=== PATIENT | male | born 1970 | race Caucasian/White ===

== ENCOUNTER 2020-06-13 14:33 | Inpatient (IN) ==
[2020-06-13 15:27] LABS: Basophils # 0.1 10*3/uL (0.0-0.2); Basophils % 0.6 % (0.0-0.8); Eosinophils # 0.1 10*3/uL (0.0-0.87); Eosinophils % 1.2 % (0.00-10.9); Hematocrit 44.3 VOL% (42.0-52.0); Hemoglobin 14.9 GM/DL (14.0-18.0); Immature Granulocytes % 0.4 %; Immature Granulocytes Absolute 0.04 #; Lymphocytes # 2.9 10*3/uL (1.4-4.0); Lymphocytes % 26.5 % (21.2-54.2); Mean Corpuscular HGB Conc 33.6 GM/DL (32-36); Mean Corpuscular Volume 94.3 FL (87-102); Mean Platelet Volume 8.7 FL (9.6-12.0); Monocytes % 5.6 % (1.7-12.7); Neutrophils % 65.7 % (38.7-73.9); Platelet Count 299 T/CUMM (130-400); Red Cell Distribution Width 12.2 % (9.3-17.3); White Blood Count 10.9 T/CUMM (4-12)
[2020-06-13 15:54] LABS: Albumin 4.2 G/DL (3.4-5.0); Bilirubin,Total 1.4 MG/DL (0.2-1.0); Calcium 9.4 MG/DL (8.5-10.1); Potassium 3.8 MMOL/L (3.5-5.1); Total Protein 8.2 G/DL (6.4-8.2)
[2020-06-13] MEDS ORDERED: MORPHINE 4 MG/1 ML VIAL IV STA (17:03)
[2020-06-13] MEDS ORDERED: KETOROLAC 30 MG/1 ML VIAL IV STA (17:05)
[2020-06-13] MEDS ORDERED: ONDANSETRON 4 MG/2 ML VIAL IV PRN (17:32)
[2020-06-13] MEDS ORDERED: GLUCAGON 1 MG VIAL IM PRN (17:32)
[2020-06-13] MEDS ORDERED: ACETAMINOPHEN 325 MG TABLET PO PRN (17:32)
[2020-06-13] MEDS ORDERED: hydrALAZINE 20 MG/1 ML VIAL IV PRN (17:32)
[2020-06-13] MEDS ORDERED: DEXTROSE 50% 25 GM/50 ML VIAL IV PRN (17:32)
[2020-06-13] MEDS ORDERED: DOCUSATE SODIUM 100 MG CAPSULE PO PRN (17:32)
[2020-06-13 17:53] LABS: Barbiturates Screen,Urine Negative (Negative); Benzodiazepines Screen,Urine Negative (Negative); Cannabinoid Screen,Urine Negative (Negative); Opiate Screen,Urine Negative (Negative); Phencyclidine Screen,Urine Negative (Negative)
[2020-06-13] MEDS: ENOXAPARIN 40 MG/0.4 ML SYRINGE SUBCUT SCH (20:35)
[2020-06-13] MEDS: HYDROmorphone 2 MG/1 ML VIAL IV PRN (22:48)
[2020-06-14 03:59] LABS: Basophils # 0.1 10*3/uL (0.0-0.2); Basophils % 0.7 % (0.0-0.8); Eosinophils # 0.2 10*3/uL (0.0-0.87); Eosinophils % 2.1 % (0.00-10.9); Hematocrit 37.9 VOL% (42.0-52.0); Hemoglobin 12.7 GM/DL (14.0-18.0); Immature Granulocytes % 0.4 %; Immature Granulocytes Absolute 0.03 #; Lymphocytes # 2.9 10*3/uL (1.4-4.0); Lymphocytes % 36.1 % (21.2-54.2); Mean Corpuscular HGB Conc 33.5 GM/DL (32-36); Mean Corpuscular Volume 95.2 FL (87-102); Mean Platelet Volume 8.8 FL (9.6-12.0); Monocytes % 7.8 % (1.7-12.7); Neutrophils % 52.9 % (38.7-73.9); Platelet Count 280 T/CUMM (130-400); Red Blood Count 3.98 MC/CUMM (3.8-5.5); Red Cell Distribution Width 12.4 % (9.3-17.3)
[2020-06-14 04:24] LABS: Uric Acid 7.1 MG/DL (3.5-7.2)
[2020-06-14 04:30] LABS: Albumin 3.3 G/DL (3.4-5.0); Bilirubin,Total 0.4 MG/DL (0.2-1.0); Calcium 8.4 MG/DL (8.5-10.1); Osmolality,Calculated 277.7 MOS/KG (273-304); Potassium 3.7 MMOL/L (3.5-5.1); Risk Ratio 5.91; Thyroid Stimulating Hormone 2.65 uIU/ml (0.358-3.74); Total Protein 6.4 G/DL (6.4-8.2)
[2020-06-14] MEDS: HYDROmorphone 2 MG/1 ML VIAL IV PRN ×4 (05:08→18:40)
[2020-06-14] MEDS: PANTOPRAZOLE 40 MG TABLET PO SCH (08:39)
[2020-06-14 09:01] LABS: Bilirubin,Urine Negative (Negative); Blood, Urine Small mg/dL (Negative); Glucose,Urine (UA) Negative (Negative); Ketones,Urine Negative (Negative); Mucus,Urine Occasional /LPF (Occasional); Nitrite,Urine Negative (Negative); Protein,Urine Negative; RBC,Urine <1 /HPF (0-4); Urine Appearance CLEAR (Clear); Urine Color Yellow (Yellow); Urine Urobilinogen < 2.0 EU/DL (0.2-1.0)
[2020-06-14] MEDS: cefTRIAXone 1,000 MG in SODIUM CHLORIDE 0.9% 100 ML IV SCH (12:27)
[2020-06-14] MEDS: VANCOMYCIN INJ 1,500 MG in SODIUM CHLORIDE 0.9% 500 ML IV SCH ×2 (14:57→23:24)
[2020-06-14] MEDS: ENOXAPARIN 40 MG/0.4 ML SYRINGE SUBCUT SCH (21:02)
[2020-06-15] MEDS: HYDROmorphone 2 MG/1 ML VIAL IV PRN ×5 (04:03→22:14)
[2020-06-15] MEDS: PANTOPRAZOLE 40 MG TABLET PO SCH (10:25)
[2020-06-15] MEDS ORDERED: propofoL 200 MG/20 ML VIAL IV ONE (10:41)
[2020-06-15] MEDS ORDERED: fentaNYL 100 MCG/2 ML VIAL ONE (10:41)
[2020-06-15] MEDS ORDERED: SEVOFLURANE 1 UNIT/15 MINUTE INH ONE (10:41)
[2020-06-15] MEDS ORDERED: LIDOCAINE 2% 5 ML VIAL ONE (10:41)
[2020-06-15] MEDS ORDERED: MIDAZOLAM 2 MG/2 ML VIAL ONE (10:41)
[2020-06-15] MEDS ORDERED: ONDANSETRON 4 MG/2 ML VIAL ONE (11:15)
[2020-06-15] MEDS ORDERED: LACTATED RINGERS 1,000 ML IV ONE (11:15)
[2020-06-15] MEDS ORDERED: DEXAMETHASONE 4 MG/1 ML VIAL ONE (11:15)
[2020-06-15] MEDS ORDERED: KETOROLAC 30 MG/1 ML VIAL ONE (11:15)
[2020-06-15] MEDS ORDERED: ONDANSETRON 4 MG/2 ML VIAL IV PRN (12:06)
[2020-06-15] MEDS: VANCOMYCIN INJ 1,500 MG in SODIUM CHLORIDE 0.9% 500 ML IV SCH ×2 (13:18→22:12)
[2020-06-15] MEDS: cefTRIAXone 1,000 MG in SODIUM CHLORIDE 0.9% 100 ML IV SCH (16:23)
[2020-06-15] MEDS: ENOXAPARIN 40 MG/0.4 ML SYRINGE SUBCUT SCH (20:13)
[2020-06-16] MEDS: HYDROmorphone 2 MG/1 ML VIAL IV PRN ×5 (02:48→20:06)
[2020-06-16 06:06] LABS: Basophils # 0.1 10*3/uL (0.0-0.2); Basophils % 0.5 % (0.0-0.8); Eosinophils # 0.1 10*3/uL (0.0-0.87); Eosinophils % 0.8 % (0.00-10.9); Hematocrit 39.5 VOL% (42.0-52.0); Hemoglobin 13.4 GM/DL (14.0-18.0); Immature Granulocytes % 0.4 %; Immature Granulocytes Absolute 0.04 #; Lymphocytes # 2.7 10*3/uL (1.4-4.0); Lymphocytes % 24.7 % (21.2-54.2); Mean Corpuscular HGB Conc 33.9 GM/DL (32-36); Mean Corpuscular Volume 93.6 FL (87-102); Mean Platelet Volume 9.1 FL (9.6-12.0); Monocytes % 6.5 % (1.7-12.7); Neutrophils % 67.1 % (38.7-73.9); Platelet Count 332 T/CUMM (130-400); Red Blood Count 4.22 MC/CUMM (3.8-5.5); Red Cell Distribution Width 12.2 % (9.3-17.3); White Blood Count 10.8 T/CUMM (4-12)
[2020-06-16 06:29] LABS: Calcium 9.1 MG/DL (8.5-10.1); Osmolality,Calculated 272.1 MOS/KG (273-304); Potassium 3.9 MMOL/L (3.5-5.1)
[2020-06-16] MEDS: PANTOPRAZOLE 40 MG TABLET PO SCH (09:36)
[2020-06-16] MEDS: VANCOMYCIN INJ 1,500 MG in SODIUM CHLORIDE 0.9% 500 ML IV SCH ×2 (12:17→22:18)
[2020-06-16] MEDS: cefTRIAXone 1,000 MG in SODIUM CHLORIDE 0.9% 100 ML IV SCH (15:28)
[2020-06-16] MEDS: ENOXAPARIN 40 MG/0.4 ML SYRINGE SUBCUT SCH (20:06)
[2020-06-17] MEDS: HYDROmorphone 2 MG/1 ML VIAL IV PRN ×6 (00:12→21:41)
[2020-06-17 06:06] LABS: Basophils # 0.1 10*3/uL (0.0-0.2); Basophils % 0.9 % (0.0-0.8); Eosinophils # 0.2 10*3/uL (0.0-0.87); Eosinophils % 2.6 % (0.00-10.9); Hematocrit 38.1 VOL% (42.0-52.0); Hemoglobin 12.9 GM/DL (14.0-18.0); Immature Granulocytes % 0.3 %; Immature Granulocytes Absolute 0.03 #; Lymphocytes # 3.9 10*3/uL (1.4-4.0); Lymphocytes % 42.2 % (21.2-54.2); Mean Corpuscular HGB Conc 33.9 GM/DL (32-36); Mean Corpuscular Volume 93.2 FL (87-102); Mean Platelet Volume 8.9 FL (9.6-12.0); Monocytes % 6.3 % (1.7-12.7); Neutrophils % 47.7 % (38.7-73.9); Platelet Count 296 T/CUMM (130-400); Red Blood Count 4.09 MC/CUMM (3.8-5.5); Red Cell Distribution Width 12.7 % (9.3-17.3); White Blood Count 9.3 T/CUMM (4-12)
[2020-06-17 06:30] LABS: Osmolality,Calculated 275.7 MOS/KG (273-304); Potassium 4.2 MMOL/L (3.5-5.1)
[2020-06-17] MEDS: PANTOPRAZOLE 40 MG TABLET PO SCH (09:04)
[2020-06-17] MEDS: VANCOMYCIN INJ 1,500 MG in SODIUM CHLORIDE 0.9% 500 ML IV SCH ×2 (10:23→23:24)
[2020-06-17] MEDS: cefTRIAXone 1,000 MG in SODIUM CHLORIDE 0.9% 100 ML IV SCH (12:43)
[2020-06-17] MEDS: ENOXAPARIN 40 MG/0.4 ML SYRINGE SUBCUT SCH (21:00)
[2020-06-18] MEDS: HYDROmorphone 2 MG/1 ML VIAL IV PRN ×3 (01:29→11:32)
[2020-06-18 05:16] LABS: Basophils # 0.1 10*3/uL (0.0-0.2); Basophils % 0.8 % (0.0-0.8); Eosinophils # 0.4 10*3/uL (0.0-0.87); Eosinophils % 4.1 % (0.00-10.9); Hematocrit 39.4 VOL% (42.0-52.0); Hemoglobin 13.6 GM/DL (14.0-18.0); Immature Granulocytes % 0.4 %; Immature Granulocytes Absolute 0.04 #; Lymphocytes # 3.5 10*3/uL (1.4-4.0); Lymphocytes % 36.4 % (21.2-54.2); Mean Corpuscular HGB Conc 34.5 GM/DL (32-36); Mean Corpuscular Volume 92.7 FL (87-102); Mean Platelet Volume 8.9 FL (9.6-12.0); Monocytes % 6.2 % (1.7-12.7); Neutrophils % 52.1 % (38.7-73.9); Platelet Count 301 T/CUMM (130-400); Red Blood Count 4.25 MC/CUMM (3.8-5.5); Red Cell Distribution Width 12.7 % (9.3-17.3); White Blood Count 9.6 T/CUMM (4-12)
[2020-06-18 05:36] LABS: Calcium 8.9 MG/DL (8.5-10.1); Osmolality,Calculated 271.1 MOS/KG (273-304); Potassium 3.9 MMOL/L (3.5-5.1)
[2020-06-18] MEDS: PANTOPRAZOLE 40 MG TABLET PO SCH (08:04)
[2020-06-18] MEDS ORDERED: FENOFIBRATE 145 MG TABLET PO SCH (09:00)
[2020-06-18] MEDS: VANCOMYCIN INJ 1,500 MG in SODIUM CHLORIDE 0.9% 500 ML IV SCH (12:16)
[2020-06-18] MEDS: cefTRIAXone 1,000 MG in SODIUM CHLORIDE 0.9% 100 ML IV SCH (12:16)
[2020-06-18 16:15] VITALS: BP 121/62
== END 2020-06-18 16:40 | disposition home or self-care (01) | DRG 501 ==
LOC: N.EDINP 14:33 → N.ED 14:33 → N.EDINP 19:53 → N.5E 20:17
PROVIDERS: ADMIT Internal Medicine; ATTEND Internal Medicine